=== PATIENT | male | born 1955 | race Caucasian/White ===

== ENCOUNTER 2017-03-10 09:44 | Emergency (ER) | payer BC ==
[~2017-03-10] VITALS: Ht 180.3 cm; Wt 90.0 kg
[~2017-03-10 09:44] MED LIST: LORTAB 5/500 501 TAB PO
[2017-03-10 09:48] VITALS: BP 127/79; PULSE 80; TEMP 97.9
[2017-03-10] MEDS ORDERED: ZOCOR5 MG (09:51)
[2017-03-10] MEDS ORDERED: PERCOCET 325 MG1 TA2 PO (11:18)
[2017-03-10] MEDS ORDERED: ZOFRAN ODT4 MG PO (11:18)
== END 2017-03-10 11:30 | disposition home or self-care (01) ==
LOC: COL.ER 09:44
DX: S49.91XA Unspecified injury of right shoulder and upper arm, initial encounter (principal); Z98.890 Other specified postprocedural states; V86.59XA Driver of other special all-terrain or other off-road motor vehicle injured in nontraffic accident, initial encounter; Y93.I9 Activity, other involving external motion